=== PATIENT | male | born 1995 | race American Indian/Alaskan Native ===

== ENCOUNTER 2022-04-03 14:02 | Emergency (ER) | payer MEDICAID, OTHER ==
--- NOTE | 2022-04-03 14:59 | XRay Report ---
XR tibia fibula 2V RT INDICATION / CLINICAL INFORMATION: leg pain. COMPARISON: None available. FINDINGS: No acute fracture. Normal alignment. Joint spaces are preserved. No destructive osseous lesion or s uspicious periosteal reaction. Impression: 1.No significant osseous abnormality. Signer Name: James Langston MD Signed: 04/03/2022 2:55 PM Workstation Name: [id number]
[2022-04-03] MEDS ORDERED: HYDROcodone/ACETAMINOPHEN 5-325 MG TAB PO STA (15:14)
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
[2022-04-03 17:02] VITALS: BP 124/78
== END 2022-04-03 17:01 | disposition home or self-care (01) ==
LOC: ED 14:02
DX: M23.91 Unspecified internal derangement of right knee (principal); Z79.899 Other long term (current) drug therapy
CPT/HCPCS: 99283